=== PATIENT | male | born 1965 | race Caucasian/White ===

== ENCOUNTER 2019-03-26 15:39 | Emergency (ER) | payer BC ==
[2019-03-26] MEDS ORDERED: EPINEPHrine 1 MG/ML SDV SUBCUT ONE (16:11)
[2019-03-26] MEDS ORDERED: Famotidine 20 MG/2 ML SDV IVPUSH ONE (16:11)
[2019-03-26] MEDS ORDERED: methylPREDNISolone Sodium Succinate 125 MG/2 ML SDV IVPUSH ONE (16:11)
--- NOTE | 2019-03-26 16:20 | EDM.PDOC ---
ED HPI GENERAL MEDICAL PROBLEM - General Chief Complaint: General Stated Complaint: BOTTOM LIP SWOLLEN Time Seen by Provider: 03/26/19 16:00 Source of Information: Reports: Patient History Limitations: Reports: No Limitations - History of Present Illness INITIAL COMMENTS - FREE TEXT/NARRATIVE: 53-year-old male with a recurring history of angioedema, started developing swelling of his lower lip 3 hours ago. It is slowly progressed to involve his entire lower lip. No swelling of the tongue or oral mucosa. No breathing difficulty. His only medication is daily Valtrex, and he did have ibuprofen earlier today for a slight headache. He was seen one year ago in the emergency room in [place] for oral angioedema, treated with epinephrine, C1 esterase inhibitor, Benadryl and Solu-Medrol. He had one other episode a week ago but it resolved spontaneously after a few hours and was not as bad. Onset: Gradual Duration: Hour(s): (4 hours) Location: Reports: Face Associated Symptoms: Reports: No Other Symptoms Face/Facial Pain Score (Numeric/FACES): 3 - Related Data Allergies Allergy/AdvReac Type Severity Reaction Status Date / Time peanut Allergy Cannot Verified 03/26/19 15:58 Remember Home Meds: Home Meds valACYclovir [Valtrex] 1,000 mg PO DAILY 03/26/19 [History] Past Medical History Musculoskeletal History: Reports: Fracture - Infectious Disease History Infectious Disease History: Reports: Herpes - Past Surgical History GI Surgical History: Reports: Appendectomy Musculoskeletal Surgical History: Reports: Other (See Below) Other Musculoskeletal Surgeries/Procedures:: wrist surgery. carpel tunnel Social & Family History - Tobacco Use Smoking Status *Q: Never Smoker - Caffeine Use Caffeine Use: Reports: Coffee, Soda - Recreational Drug Use Recreational Drug Use: No ED ROS GENERAL - Review of Systems Review Of Systems: See Below Constitutional: Denies: Fever, Chills HEENT: Reports: Other (Only symptom is significant lower lip swelling) Respiratory: Denies: Shortness of Breath Cardiovascular: Denies: Chest Pain Neurological: Reports: Headache ED EXAM, GENERAL - Physical Exam Exam: See Below Exam Limited By: No Limitations General Appearance: Alert, No Apparent Distress (Looks uncomfortable but not distressed) Throat/Mouth: Other (Tense diffuse angioedema is present of the lower lip, cheek mucosa and oropharynx is not involved. Tongue is normal.) Head: Atraumatic Respiratory/Chest: No Respiratory Distress, Lungs Clear Cardiovascular: Regular Rate, Rhythm Neurological: Alert, Oriented Psychiatric: Normal Affect, Normal Mood Skin Exam: Warm, Dry, Other (No rash) Course - Vital Signs Last Recorded V/S: Last Vital Signs Temp 96.3 F 03/26/19 16:03 Pulse 72 03/26/19 16:03 Resp 16 03/26/19 16:03 BP 133/90 03/26/19 16:03 Pulse Ox 96 03/26/19 16:03 - Orders/Labs/Meds Meds: Medications Discontinued Medications Generic Name Dose Route Start Last Admin Trade Name Freq PRN Reason Stop Dose Admin Epinephrine HCl 0.3 mg 03/26/19 16:11 03/26/19 16:16 Adrenalin SUBCUT 03/26/19 16:12 0.3 mg ONETIME ONE Administration Famotidine 20 mg 03/26/19 16:11 03/26/19 16:20 Pepcid IVPUSH 03/26/19 16:12 20 mg ONETIME ONE Administration Methylprednisolone Sodium Succinate 125 mg 03/26/19 16:11 03/26/19 16:19 Solu-Medrol IVPUSH 03/26/19 16:12 125 mg ONETIME ONE Administration - Re-Assessments/Exams Free Text/Narrative Re-Assessment/Exam: 03/26/19 16:20 Patient was given 0.3 mg of subcutaneous epinephrine, a saline lock was started and he was given 125 mg of Solu-Medrol and 20 mg of IV Pepcid. C1 esterase inhibitor was not available at this hospital. 03/26/19 17:10 45 minutes after the medications the patient had significant improvement both objectively and subjectively. He was given a prescription for another dose of EpiPen to use as directed. Departure - Departure Time of Disposition: 17:18 Disposition: Home, Self-Care 01 Clinical Impression: Angioedema Qualifiers: Encounter type: initial encounter Qualified Code(s): T78.3XXA - Angioneurotic edema, initial encounter - Discharge Information Instructions: Angioedema, [id number] Referrals: PCP,None [Primary Care Provider] - Forms: ED Department Discharge Care Plan Goals: Cool compresses to the lip may decrease swelling somewhat quicker, return anytime if worsening. Fill EpiPen prescription as directed. A regular dose of Benadryl over the next 24-48 hours may also be helpful.
== END 2019-03-26 17:18 | disposition home or self-care (01) ==
LOC: JP.ED 15:39
DX: T78.3XXA Angioneurotic edema, initial encounter (principal); Z91.010 Allergy to peanuts
CPT/HCPCS: 96372; 96374; 96375; 99283; J0171; J2930; J3490